=== PATIENT | female | born 1955 | race Caucasian/White ===

== ENCOUNTER 2018-08-03 23:19 | Emergency (ER) | payer BC ==
--- NOTE | 2018-08-03 23:26 | Emergency Department Record ---
History of Present Illness - General Chief Complaint: Dizziness Stated Complaint: dizzy Time Seen by Provider: 08/03/18 23:20 Source: Patient Mode of Arrival: Wheelchair Limitations: No limitations - History of Present Illness Initial Comments: 63 yo female presents to ED for evaluation of sudden-onset "dizziness" that began approximately 30 minutes prior to arrival. Patient denies syncope or chest discomfort, denies focal weakness on examination. Patient reports nausea without vomiting, denies use of anticoagulation medications. Patient denies f jaya, chills, or recent illness. Patient denies health problems at her baseline. MD Complaint: Dizziness Onset/Timin -: Minutes(s) Timing: Sudden onset Description: "Room spinning" History of Same: No History of Trauma: No Severity: Moderate Improves With: Nothing Worsens With: Nothing Associated Symptoms: Denies other symptoms - [place] Coma Scale Eye Response: (4) Open spontaneously Motor Response: (6) Obeys commands Verbal Response: (5) Oriented [place] Total: 15 - Related Data Previous Rx's Medication Instructions Recorded Diazepam [Valium] 5 mg PO Q8H #10 tab 08/04/18 Meclizine HCl [Antivert] 25 mg PO Q8H PRN #15 tablet 08/04/18 Allergies Allergy/AdvReac Type Severity Reaction Status Date / Time sulfamethoxazole Allergy RASH Verified 08/03/18 23:20 [From Bactrim] trimethoprim [From Bactrim] Allergy RASH Verified 08/03/18 23:20 Review of Systems Constitutional: Denies: Chills, Fever, Malaise, Night sweats Eyes: Denies: Eye discharge, Eye pain ENT: Denies: Congestion, Ear pain, Epistaxis Respiratory: Denies: Cough, Dyspnea Cardiovascular: Denies: Chest pain, Dyspnea on exertion Endocrine: Denies: Fatigue, Heat or cold intolerance Gastrointestinal: Reports: Nausea. Denies: Constipation, Vomiting Genitourinary: Denies: Incontinence, Retention Musculoskeletal: Denies: Arthralgia, Back pain Skin: Denies: Bruising, Change in color Neurological: Reports: Vertigo. Denies: Abnormal gait, Confusion, Headache, Seizure, Tingling Psychiatric: Denies: Anxiety Hematological/Lymphatic: Denies: Anemia, Blood Clots Physical Exam - General General Appearance: Alert, Oriented x3, Cooperative, Moderate distress Limitations: No limitations - Head Head exam: Atraumatic, Normocephalic, Normal inspection Head exam detail: negative: Abrasion, Contusion, Sr's sign, General tenderness, Hematoma, Laceration - Eye Eye exam: Normal appearance, Nystagmus (Fast beat to the right). negative: Conjunctival injection, Periorbital swelling, Periorbital tenderness, Scleral icterus - ENT Ear exam: negative: Auricular hematoma, Auricular trauma Nasal Exam: negative: Active bleeding, Discharge, Dried blood, Foreign body Mouth exam: negative: Drooling, Laceration, Muffled voice, Tongue elevation - Neck Neck exam: Normal inspection. negative: Meningismus, Tenderness - Respiratory Respiratory exam: Normal lung sounds bilaterally. negative: Rales, Respiratory distress, Rhonchi, Stridor - Cardiovascular Cardiovascular Exam: Regular rate, Normal rhythm, Normal heart sounds - GI/Abdominal GI/Abdominal exam: Soft. negative: Rebound, Rigid, Tenderness - Rectal Rectal exam: Deferred - exam: Deferred - Extremities Extremities exam: Normal inspection. negative: Pedal edema, Tenderness - Back Back exam: Denies: CVA tenderness (R), CVA tenderness (L) - Neurological Neurological exam: Alert, Normal gait, Oriented X3 - Psychiatric Psychiatric exam: Normal affect, Normal mood - Skin Skin exam: Normal color. negative: Abrasion Type of lesion: negative: abrasion Course - Reevaluation(s) Reevaluation #1: 08/03/18 23:21 EKG: NSR 71 Normal axis, normal intervals No acute ST-T wave changes Reevaluation #2: 08/03/18 23:49 Laboratory studies were reviewed and are grossly unremarkable for an acute process. Reevaluation #3: 08/04/18 00:31 Patient was reassessed, reports mild improvement however reports right sided neck pain "after sleeping on it wrong". Patient has no clinical evidence for CVA on examination, however will exclude carotid dissection as a cause of the patient's symptoms. Reevaluation #4: 08/04/18 02:38 CTA Head/Neck: No acute intracranial profcess No hemodynamically significant stenosis is present Patient was updated on all results, reports improvement in her symptoms Patient is ambulating with steady gait on re-examination, appears stable for discharge with symptomatic treatment as directed. Medical Decision Making - Lab Data Result diagrams: 08/03/18 23:25 08/03/18 23:25 Disposition Disposition: Discharge Clinical Impression: Peripheral vertigo Qualifiers: Laterality: unspecified laterality Qualified Code(s): H81.399 - Other peripheral vertigo, unspecified ear Disposition: Home, Self-Care Condition: (2) Stable Instructions: Vertigo (ED) Additional Instructions: Return to ED if your symptoms worsen or if you have any concerns. Antivert and Valium as directed. Follow-up with your family doctor in 3-5 days as directed. Prescriptions: Meclizine HCl [Antivert] 25 mg PO Q8H PRN #15 tablet PRN Reason: Vertigo Diazepam [Valium] 5 mg PO Q8H #10 tab Forms: Patient Portal Access Time of Disposition: 02:40 Quality - Quality Measures Quality Measures: N/A - Blood Pressure Screening Does Patient Have Any of the Following: No Blood Pressure Classification: Hypertensive Reading Systolic Measurement: 140 Diastolic Measurement: 102 Screening for High Blood Pressure: < First Hypertensive BP, F/U Documented > [G8950] First Hypertensive Follow-up Interventions: Referral to alternative/primary care provider.
[2018-08-03] MEDS: ONDANSETRON HCL IV 4 MG/2 ML VIAL IVP ONE (23:30)
[2018-08-03] MEDS: MECLIZINE 25 MG TABLET PO ONE (23:30)
[2018-08-03 23:34] LABS: ABSOLUTE NEUTROPHIL COUNT 4.96; EOS % 3.1 % (0-6); GRAN % 56.2 % (47-80); HEMATOCRIT 36.5 % (35.0-47.0); HEMOGLOBIN 12.1 gm/dl (11.6-16.0); LYMPH % 28.9 % (16-45); MEAN CELL VOLUME 100.6 fl (81-97); MEAN CORPUSCULAR HEMOGLOBIN 33.3 pg (27-33); MEAN CORPUSCULAR HGB CONC 33.2 g/dl (32-36); MEAN PLATELET VOLUME 8.9 fl (7.4-10.4); MONO % 10.8 % (0-9); PLATELET COUNT 413 K/uL (130-400); RED BLOOD COUNT 3.63 M/uL (3.80-5.40); RED CELL DISTRIBUTION WIDTH 13.6 % (11.5-14.5); WHITE BLOOD COUNT W/O DIFF 8.8 K/uL (4.2-12.2)
[2018-08-03] MEDS: 0.9 % SODIUM CHLORIDE 1000ML 1,000 ML IV SCH (23:35)
[2018-08-03] MEDS: DIAZEPAM (VALIUM) 5MG/ML **10ML VIAL IVP ONE (23:42)
[2018-08-03 23:43] LABS: BLOOD UREA NITROGEN 13 mg/dL (8-23); CREATININE 0.7 mg/dL (0.5-0.9); EST GLOMERULAR FILTRATION RATE > 60 mL/min; TOTAL PROTEIN 7.1 g/dL (6.6-8.7)
[2018-08-03 23:46] LABS: GLUCOSE,RANDOM 108 mg/dL (74-109)
[2018-08-03 23:48] LABS: ALB/GLOB RATIO 1.4 (1.1-1.8); ALBUMIN 4.1 g/dL (4.0-5.0); ALKALINE PHOSPHATASE 88 U/L (35-104); ALT/SGPT 16 U/L (<33); AST/SGOT 17 U/L (10.0-35.0)
[2018-08-04] MEDS: MORPHINE SULFATE 10MG/1ML **1ML VIAL IVP ONE (00:56)
--- NOTE | 2018-08-05 12:49 | CT ANGIOGRAM REPORT ---
EXAM: CT SCAN OF THE BRAIN WITHOUT CONTRAST AND CTA OF THE NECK AND BRAIN WITH CONTRAST HISTORY: SUDDEN ONSET DIZZINESS TONIGHT. NOT RESPONDING TO MEDICATIONS. TECHNIQUE: An initial noncontrast CT scan of the brain was performed. Subsequent CT angiography of the neck and brain was performed with post processing following the bolus administration of 100 ml of Omnipaque 350. Additional multiplanar maximum intensity projection and 3D volume rendered reformatted images were performed on independent workstation under concurrent supervision. PQRS DOCUMENTATION: All internal carotid artery percent stenoses are calculated using the distal internal carotid artery diameter as the denominator (NASCET criteria). Comparison: None. FINDINGS: HEAD CT: The brain volume is normal. There is no mass, mass effect, intracranial hemorrhage, visible acute infarct, or abnormal extraaxial fluid. The skull is intact. The orbits, sinuses and mastoids are normal. The middle ear cavities are clear. CTA OF THE NECK: The visualized portions of the ascending aorta measures up to 3.5 cm in diameter. There is no dissection. The common carotid arteries are normal in caliber. The carotid bifurcations are unremarkable as are the internal and external carotid arteries. The left vertebral artery is dominant. There is no vertebral stenosis or dissection. The left vertebral artery originates directly from the aortic arch which is an anatomic variant. CTA OF THE HEAD: The intracranial internal carotid arteries are normal in appearance. The anterior and middle cerebral arteries are unremarkable. The anterior communicating artery is visible and is normal. The left posterior communicating artery also appears normal. The right posterior communicating artery is not clearly seen and is likely hypoplastic or congenitally absent. This is an anatomic variant. The vertebrobasilar system and its branch vessels including both posterior cerebral arteries is normal. There is no intracranial vascular occlusion, aneurysm, or arteriovenous malformation. IMPRESSION: 1. NEGATIVE CTA OF THE NECK AND BRAIN. THERE IS NO HIGH GRADE STENOSIS OR VASCULAR OCCLUSION. 2. NO ACUTE INTRACRANIAL ABNORMALITY. JOB NUMBER: [id number] MTDD
== END 2018-08-04 02:51 | disposition home or self-care (01) ==
LOC: ER 23:19
DX: R42 Dizziness and giddiness (principal); R11.0 Nausea
CPT/HCPCS: 70496; 70498; 80053; 85025; 93005; 93010; 96361; 96374; 96375; 99284; J2270; J2405; J3360; J7030